=== PATIENT | female | born 1970 | race Caucasian/White ===

== ENCOUNTER → 2016-06-01 | Outpatient (CLI) | payer OTHER | LOC: MERGE 11:01 → CIMAGING 11:01 | DX: Z12.31 Encounter for screening mammogram for malignant neoplasm of breast (principal) | CPT/HCPCS: G0202 ==

== ENCOUNTER 2017-05-17 12:02 | Emergency (ER) | payer OTHER ==
[2017-05-17 12:40] LABS: PLATELET COUNT 272 10^3/uL (150-400)
[2017-05-17] MEDS ORDERED: NS 1,000 ML IV ONE (13:34)
[2017-05-17] MEDS ORDERED: KETOROLAC 30 MG/1 ML SDV IVP ONE (13:34)
--- NOTE | 2017-05-17 13:38 | EDPHY ---
H & P Stated Complaint: witnessed sz Time Seen by Provider: 05/17/17 13:09 HPI/ROS: CHIEF COMPLAINT: Seizure HISTORY OF PRESENT ILLNESS: Patient is a 46-year-old female who has a history of celiac disease and Raynaud's disease but not immunosuppressed who comes to the emergency department after having a seizure. She was hiking with her son when she felt dizzy and sat down. Her son said that she then fell to the ground and began convulsing for about 15 sec. She was then confused and postictal for about half an hour. This was witnessed by paramedics and by her primary care doctor who was here in the ER with her. Her and state that she is now clearing and almost to baseline. She has abrasions to her face and a small laceration to her lip. She has no cardiac or neurologic history. No cancer history. She does not drink significant amounts of alcohol and does not take any sedatives. No recent fevers or illness. No focal weakness numbness or deficits. REVIEW OF SYSTEMS: Constitutional: denies: chills, fever, recent illness, recent injury EENTM: denies: blurred vision, double vision, nose congestion Respiratory: denies: cough, shortness of breath Cardiac: See HPI denies: chest pain, irregular heart rate, palpitations Gastrointestinal/Abdominal: denies: abdominal pain, diarrhea, nausea, vomiting, blood streaked stools Genitourinary: denies: dysuria, frequency, hematuria, pain Musculoskeletal: denies: joint pain, muscle pain Skin: denies: lesions, rash, jaundice, bruising Neurological: See HPI Hematologic/Lymphatic: denies: blood clots, easy bleeding, easy bruising Immunologic/allergic: denies: HIV/AIDS, transplant EXAM: GENERAL: Well-appearing, well-nourished and in no acute distress. HEAD: See below, Atraumatic, normocephalic. EYES: Pupils equal round and reactive to light, extraocular movements intact, sclera anicteric, conjunctiva are normal. ENT: See below, TMs normal, nares patent, oropharynx clear without exudates. Moist mucous membranes. NECK: Normal range of motion, supple without lymphadenopathy or JVD. LUNGS: Breath sounds clear to auscultation bilaterally and equal. No wheezes rales or rhonchi. HEART: Regular rate and rhythm without murmurs, rubs or gallops. ABDOMEN: Soft, nontender, normoactive bowel sounds. No guarding, no rebound. No masses appreciated. BACK: No CVA tenderness, no spinal tenderness, step-offs or deformities EXTREMITIES: Normal range of motion, no pitting or edema. No clubbing or cyanosis. NEUROLOGICAL: Cranial nerves II through XII grossly intact. Normal speech, normal gait. 5/5 strength, normal movement in all extremities, normal sensation PSYCH: Normal mood, normal affect. SKIN: Abrasions to right forehead and chin, small laceration to lower lip, Source: Patient, Family, RN/MD - Personal History LMP (Females 10-55): Unknown Current Tetanus/Diphtheria Vaccine: Yes Current Tetanus Diphtheria and Acellular Pertussis (TDAP): Yes - Medical/Surgical History Hx Asthma: No Hx Chronic Respiratory Disease: No Hx Diabetes: No Hx Cardiac Disease: No Hx Renal Disease: No Hx Cirrhosis: No Hx Alcoholism: No Hx HIV/AIDS: No Hx Splenectomy or Spleen Trauma: No Other PMH: celiac disease, raynauds disease, hydrosalpinx, atypical cp, frequent waking, urge incontinenz, plantar fascitis, b/l salpingectomy - Family History Significant Family History: No pertinent family hx - Social History Smoking Status: Never smoked Alcohol Use: Sober Drug Use: None Constitutional: Initial Vital Signs Temperature (C) 36.5 C 05/17/17 12:02 Heart Rate 69 05/17/17 12:02 Respiratory Rate 17 05/17/17 12:02 Blood Pressure 110/84 H 05/17/17 12:02 O2 Sat (%) 99 05/17/17 12:02 O2 Delivery Mode Room Air Allergies/Adverse Reactions: No Known Allergies Allergy (Unverified 03/10/10 10:32) Home Medications: Medication Instructions Recorded Cholecalciferol (Vitamin D3) 05/17/17 Cyclobenzaprine 05/17/17 Melatonin 05/17/17 [place]-3 05/17/17 ZOLPIDEM TARTRATE 05/17/17 Medical Decision Making - Diagnostics EKG Interpretation: An EKG obtained and was read and documented in trace view. Please see trace view for full reading and report. Sinus rhythm, no acute ischemic changes Imaging Results: Imaging Impressions Head CT 05/17/17 13:35 Impression:1. Normal brain. No source for seizure identified. 2. Small radiopaque foreign body in the left medial canthus. 3. Lateral extraconal inferior globe edema. Results called to Dr. Bowen at 2:10 PM. General information for patients regarding this examination can be found at [email or web address]. If you have questions or comments about this report, please contact me at (hospital) or [phone] (cell). Imaging: Discussed imaging studies w/ weight caller Radiologist ED Course/Re-evaluation: 2:30 p.m. the patient's lab work and CT are reassuring. I was able to remove a rock from the corner of her eye. It was not in the mucosa. Patient is back to normal other than a very slight headache. She is eager to go. I discussed the case with Dr. Menard her primary. He will order an outpatient MRI and we will refer her to Neurology. I have instructed her not to drive until she is cleared by the neurologist. Differential Diagnosis: Partial list of the Differential diagnosis considered include but were not limited to; seizure, syncope, arrhythmia, and although unlikely based on the history and physical exam, I also considered tumor, infection, fracture. I discussed these differential diagnoses and the plan with the patient as well as the usual and expected course. The patient understands that the diagnosis is provisional and that in medicine we are not always correct and that further workup is often warranted. Usual and customary warnings were given. All of the patient's questions were answered. The patient was instructed to return to the emergency department should the symptoms at all worsen or return, otherwise to followup with the physician as we discussed. - Data Points Laboratory Results: Laboratory Results 05/17/17 12:20 05/17/17 12:20 05/17/17 05/17/17 05/17/17 12:20 12:20 12:15 WBC 6.21 10^3/uL 10^3/uL (3.80-9.50) RBC 4.66 10^6/uL 10^6/uL (4.18-5.33) Hgb 14.4 g/dL g/dL (12.6-16.3) Hct 43.6 % % (38.0-47.0) MCV 93.6 fL fL (81.5-99.8) MCH 30.9 pg pg (27.9-34.1) MCHC 33.0 g/dL g/dL (32.4-36.7) RDW 12.6 % % (11.5-15.2) Plt Count 272 10^3/uL 10^3/uL (150-400) MPV 10.0 fL fL (8.7-11.7) Neut % (Auto) 65.0 % % (39.3-74.2) Lymph % (Auto) 26.6 % % (15.0-45.0) [place] % (Auto) 6.1 % % (4.5-13.0) Eos % (Auto) 1.3 % % (0.6-7.6) Baso % (Auto) 0.8 % % (0.3-1.7) Nucleat RBC Rel Count 0.0 % % (0.0-0.2) Absolute Neuts (auto) 4.04 10^3/uL 10^3/uL (1.70-6.50) Absolute Lymphs (auto) 1.65 10^3/uL 10^3/uL (1.00-3.00) Absolute Monos (auto) 0.38 10^3/uL 10^3/uL (0.30-0.80) Absolute Eos (auto) 0.08 10^3/uL 10^3/uL (0.03-0.40) Absolute Basos (auto) 0.05 10^3/uL 10^3/uL (0.02-0.10) Absolute Nucleated RBC 0.00 10^3/uL 10^3/uL (0-0.01) Immature Gran % 0.2 % % (0.0-1.1) Immature Gran # 0.01 10^3/uL 10^3/uL (0.00-0.10) Sodium 141 mEq/L mEq/L (135-145) Potassium 4.1 mEq/L mEq/L (3.5-5.2) Chloride 102 mEq/L mEq/L (97-110) Carbon Dioxide 20 mEq/l L mEq/l (22-31) Anion Gap 19 mEq/L H mEq/L (8-16) BUN 11 mg/dL mg/dL (7-23) Creatinine 0.8 mg/dL mg/dL (0.6-1.0) Estimated GFR > 60 Glucose 80 mg/dL mg/dL (70-100) Calcium 9.4 mg/dL mg/dL (8.5-10.4) Beta HCG, Qual NEGATIVE Medications Given: Discontinued Medications Sodium Chloride (Ns) 1,000 mls @ 0 mls/hr IV EDNOW ONE; Wide Open PRN Reason: Protocol Stop: 05/17/17 13:35 Last Admin: 05/17/17 13:44 Dose: 1,000 mls Ketorolac Tromethamine (Toradol) 15 mg IVP EDNOW ONE Stop: 05/17/17 13:35 Last Admin: 05/17/17 13:42 Dose: 15 mg Departure - Departure Disposition: Home, Routine, Self-Care Clinical Impression: Seizure, Abrasion Condition: Good Instructions: Abrasion (ED), New-Onset Seizure in Adults (ED) Additional Instructions: Do not drive until you follow up with the neurologist. Referrals: Abundio Menard MD [Primary Care Provider] - As per Instructions Raheem Morel DO [Medical Doctor] - 5-7 days, call for appt.
--- NOTE | 2017-05-17 14:26 | CPEKG ---
Heart Rate: 64 RR Interval: 938 P-R Interval: 152 QRSD Interval: 78 QT Interval: 412 QTC Interval: 425 P [place]: 63 QRS [place]: 39 T Wave [place]: 44 EKG Severity - NORMAL ECG - EKG Impression: SINUS RHYTHM Electronically Signed By: Yahir Bowen 17-May-2017 14:26:20
[2017-05-17] MEDS ORDERED: BACITRACIN OINTMENT 1 PACKET TP ONE (15:19)
[2017-05-17 15:29] VITALS: BP 110/87
== END 2017-05-17 15:29 | disposition home or self-care (01) ==
LOC: EDUNIT#
DX: S00.81XA Abrasion of other part of head, initial encounter (principal); R56.9 Unspecified convulsions; E86.9 Volume depletion, unspecified; W18.39XA Other fall on same level, initial encounter; Y99.8 Other external cause status; Y93.01 Activity, walking, marching and hiking
CPT/HCPCS: 96374; J1885